=== PATIENT | male | born 1990 | race African-American/Black ===

== ENCOUNTER 2017-09-28 08:42 | Emergency (ER) | payer SELFPAY ==
[2017-09-28 08:51] VITALS: BMI 24.4
--- NOTE | 2017-09-28 08:56 | PDOC ---
History of Present Illness - General Chief Complaint: Respiratory Stated Complaint: ASTHMA ATTACK, COLD LIKE SYMPTOMS Time Seen by Provider: 09/28/17 08:56 - History of Present Illness Initial Comments: 27 year old male with remote history of asthma presenting with fevers, chills, nausea, NBNB vomiting, myalgias, and NB diarrhea since Friday. Patient states his had some similar symptoms last week but she improved. He came in today after a severe 10/10 occipital headache with slight photophobia, no sonophobia, and no visual acuity change that prevented him from getting continuous sleep. He hasn't attempted to measure a fever at home, hasn't taken Tylenol, and hasn't taken any NSAIDs. He tried a dose of tamiflu and some sleep aid but they didn't help. He is complaining of some nonspecific left hand finger tip paresthesias but no specific chest pain, SOB, or diaphoresis. Denies visual symptoms besides those noted, urinary symptoms, blood from any orifice, ataxia, or focal neurological deficit. 09/28/17 09:56 Past History - Past Medical History Allergies/Adverse Reactions: Allergies Allergy/AdvReac Type Severity Reaction Status Date / Time hydrocodone [Hydrocodone] Allergy Mild Hives Verified 09/28/17 08:50 Home Medications: Ambulatory Orders Ondansetron [Zofran *Odt*] 8 mg SL BID PRN #10 od.tablet 09/28/17 Asthma: Yes COPD: No - Suicide/Smoking/Psychosocial Hx Smoking Status: Yes (Occasionally marijuana) Smoking History: Current some day smoker Number of Cigarettes Smoked Daily: 1 Information on smoking cessation initiated: No Substance Use Type: Marijuana Review of Systems - Review of Systems Constitutional: Yes: Chills, Fever, Weakness. No: Diaphoresis HEENTM: Yes: Tearing. No: Blurred Vision, Recent change in vision, Throat Pain , Throat Swelling, Mouth Pain Respiratory: Yes: Cough. No: Shortness of Breath, Wheezing, Productive cough, Hemoptysis Cardiac (ROS): Yes: Lightheadedness. No: Chest Pain, Chest Tightness ABD/GI: No: Nausea, Vomiting : No: Dysuria, Discharge, Hematuria, Incontinence Musculoskeletal: Yes: Back Pain, Muscle Pain. No: Joint Swelling, Joint Stiffness Integumentary: No: Bruising, Erythema, Lesions Neurological: Yes: Headache, Paresthesia. No: Numbness Psychiatric: No: Anxiety, Depression Hematologic/Lymphatic: No: Anemia, Blood Clots, Easy Bleeding *Physical Exam - Vital Signs Last Vital Signs Temp Pulse Resp BP Pulse Ox 101 F H 92 H 18 140/90 97 09/28/17 08:46 09/28/17 08:46 09/28/17 08:46 09/28/17 08:46 09/28/17 08:46 - Physical Exam General Appearance: Yes: Nourished, Appropriately Dressed. No: Apparent Distress HEENT: positive: EOMI, ZEE, Photophobia, Nasal Congestion, Other (lacrimation) . negative: Normal ENT Inspection Neck: positive: Trachea midline, Normal Thyroid, Supple. negative: Tender, Rigid Respiratory/Chest: positive: Lungs Clear, Normal Breath Sounds. negative: Chest Tender, Respiratory Distress, Accessory Muscle Use Cardiovascular: positive: Regular Rhythm, Regular Rate Gastrointestinal/Abdominal: positive: Normal Bowel Sounds, Flat, Soft. negative : Tender Musculoskeletal: positive: Normal Inspection. negative: CVA Tenderness, Decreased Range of Motion Extremity: positive: Normal Capillary Refill, Normal Inspection, Normal Range of Motion. negative: Tender Integumentary: positive: Normal Color, Dry, Warm Neurologic: positive: land use planner II-XII NML intact, Fully Oriented, Alert, Normal Mood/ Affect, Normal Response, Motor Strength / ED Treatment Course - LABORATORY CBC & Chemistry Diagram: 09/28/17 10:00 09/28/17 10:00 Medical Decision Making - Medical Decision Making 27 year old male with myalgias, fevers, chills, nausea, vomiting, diarrhea, and headachs for the past 4 days who is presenting because he has not improved but also has not taken tylenol or any NSAIDs. His EKG demonstrates NSR, labs are WNL, and his symptoms are much improved. EKG demonstrating NSR. Will give on dose toradol 15 IV and DC patient with return precautions and Tylenol/ NSAID iuse instructions as this is likely a viral gastroenteritis vs. flu. However, he is well outside the window for tamiflu administration. 09/28/17 11:02 *DC/Admit/Observation/Transfer Diagnosis at time of Disposition: Viral illness - Discharge Dispostion Disposition: HOME Condition at time of disposition: Improved Admit: No - Prescriptions Prescriptions: Ondansetron [Zofran *Odt*] 8 mg SL BID PRN #10 od.tablet PRN Reason: Nausea And/Or Vomiting - Referrals Referrals: [facility] [Provider Group] - Patient Instructions Printed Discharge Instructions: DI for Viral Gastroenteritis -- Adult Additional Instructions: You likely have a viral illness of your throat and stomach. This could be the flu as well. Please take the zofran for nausea and please use Tylenol at home for the fever. For the muscle aches and headache, you can use Advil, aleve, generic ibuprofen, or generic naproxen. Please rest for the next few days. Please follow up with the primary care doctor listed if you do not have someone of your own to answer any questions or give you routine healthcare. Please return to the ED if the fever remains despite Tylenol use or the vomiting is not helped by the zofran. - Post Discharge Activity Forms/Work/School Notes: Back to Work
[2017-09-28] MEDS ORDERED: ACETAMINOPHEN 500 MG TABLET (FP) PO ONE (08:57)
[2017-09-28] MEDS ORDERED: ACETAMINOPHEN 500 MG TABLET (FP) ONE (09:06)
[2017-09-28] MEDS ORDERED: ONDANSETRON *ODT* 4 MG TABLET SL ONE (09:31)
[2017-09-28] MEDS ORDERED: SODIUM CHLORIDE 0.9% 500 ML INFUS.BAG IV ONE (09:31)
[2017-09-28] MEDS ORDERED: ONDANSETRON 4 MG/2 ML VIAL ONE (09:39)
[2017-09-28 10:05] LABS: BASO % 1.4 % (0-2.0); HEMATOCRIT 47.2 % (35.4-49); HEMOGLOBIN 15.7 GM/dL (11.7-16.9); LYMPH % 17.8 % (8-40); MCH 30.8 pg (25.7-33.7); MCHC 33.2 g/dl (32.0-35.9); MEAN CELL VOLUME 92.6 fl (80-96); MEAN PLT VOLUME 8.9 fl (7.5-11.1); MONO % 13.2 % (3.8-10.2); NEUT % 67.6 % (42.8-82.8); PLATELET COUNT 138 K/MM3 (134-434); RBC 5.09 M/mm3 (4.00-5.60); RDW 13.8 % (11.9-15.9); WHITE BLOOD COUNT 5.4 K/mm3 (4.0-10.0)
--- NOTE | 2017-09-28 10:22 | PDOC ---
Attending Attestation - Resident Resident Name: Gil Hutchins - ED Attending Attestation I have performed the following: I have examined & evaluated the patient, The case was reviewed & discussed with the resident, I agree w/resident's findings & plan, Exceptions are as noted - HPI HPI: 09/28/17 10:19 "The patient is a 27 year old male with a significant past medical history of remote asthma who presents to the ED with bodyaches, N+V+D since (4 days). The patient reports 6 episodes of non-bilious, non-bloody vomiting in total associated with multiple episode of watery brown diarrhea. He describes his body aches as diffuse. He also notes a gradual onset posterior headache in with associated mild photophobia. Denies thunderclap, denies neck stiffness. The patient also endorses subjective fever (not measured at home). He states that he has not taken anything to treat symptoms other than tamilflu (obtained from a relative) and a sleep aid with minimal relief of symptoms. Social history: smokes marijuana 2 times weekly - Physicial Exam PE: 09/28/17 10:21 "GENERAL: Awake, alert, and fully oriented, in no acute distress HEAD: No signs of trauma EYES: PERRLA, EOMI, sclera anicteric, conjunctiva clear ENT: Auricles normal inspection, hearing grossly normal, nares patent, oropharynx clear without exudates. Moist mucosa NECK: Nontender, no stepoffs, Normal ROM, supple, no lymphadenopathy, JVD, or masses LUNGS: Breath sounds equal, clear to auscultation bilaterally. No wheezes, and no crackles HEART: Regular rate and rhythm, normal S1 and S2, no murmurs, rubs or gallops ABDOMEN: Soft, nontender, normoactive bowel sounds. No guarding, no rebound. No masses EXTREMITIES: Normal range of motion, no edema. No clubbing or cyanosis. No cords, erythema, or tenderness NEUROLOGICAL: Cranial nerves II through XII intact. 5/5 strength and sensation in all extremities, Normal speech, normal gait SKIN: Warm, Dry, normal turgor, no rashes or lesions noted. " - Medical Decision Making 09/28/17 10:21 27 M with flu-like symptoms x 4 days. Likely viral syndrome. Pt with no evidence of meningismus on exam, negative kernig/brudzinsky. No abdominal tenderness to suggest acute abdominal pathology. - Labs - IVF, tylenol, zofran 09/28/17 12:48 Labs wnl. Pt is well appearing, with normal vitals. Clinically stable for DC at this time. I discussed the physical exam findings, ancillary test results and final diagnoses with the patient. I answered all of the patient's questions. The patient was satisfied with the care received and felt comfortable with the discharge plan and treatment plan. The patient agrees to follow up with the primary care physician within 24-72 hours.
[2017-09-28 10:31] LABS: ALBUMIN 4.3 g/dl (3.4-5.0); ALK PHOS 47 U/L (45-117); ANION GAP 11 (8-16); BILIRUBIN,TOTAL 0.4 mg/dL (0.2-1.0); BLOOD UREA NITROGEN 20 mg/dL (7-18); CALCIUM 8.9 mg/dL (8.5-10.1); CHLORIDE 102 mmol/L (98-107); CO2 24 mmol/L (21-32); CREATININE 0.8 mg/dL (0.7-1.3); GLUCOSE,RANDOM 78 mg/dL (74-106); POTASSIUM 3.9 mmol/L (3.5-5.1); SGOT/AST 37 U/L (15-37); SGPT/ALT 45 U/L (12-78); SODIUM 137 mmol/L (136-145); TOT PROT 7.8 g/dl (6.4-8.2)
[2017-09-28] MEDS ORDERED: ONDANSETRON 4 MG/2 ML VIAL IVPUSH ONE (10:33)
[2017-09-28] MEDS ORDERED: KETOROLAC TROMETHAMINE 15 MG/ML VIAL IVPUSH ONE (11:16)
[2017-09-28] MEDS ORDERED: KETOROLAC TROMETHAMINE 15 MG/ML VIAL ONE (11:25)
[2017-09-28 11:45] VITALS: BP 122/81; PULSE 81; TEMP 99
--- NOTE | 2017-09-28 16:50 | EKG ---
Test Reason : Blood Pressure : / mmHG Vent. Rate : 059 BPM Atrial Rate : 059 BPM P-R Int : 162 ms QRS Dur : 086 ms QT Int : 392 ms P-R-T Axes : 058 083 037 degrees QTc Int : 388 ms SINUS BRADYCARDIA POSSIBLE LEFT ATRIAL ENLARGEMENT BORDERLINE ECG NO PREVIOUS ECGS AVAILABLE Confirmed by MICHELLE HUSAIN, AFSHAN ([id number]) on 09/28/2017 4:50:17 PM Referred By: Confirmed By:AFSHAN MARTINEZ MD
== END 2017-09-28 11:46 | disposition home or self-care (01) ==
LOC: JER 08:42
PROC: 3E0333Z Introduction of Anti-inflammatory into Peripheral Vein, Percutaneous Approach (ICD-10-PCS; principal; 2017-09-28)
DX: A08.4 Viral intestinal infection, unspecified (principal); B97.89 Other viral agents as the cause of diseases classified elsewhere
CPT/HCPCS: 36415; 80053; 85025; 93005; 93010; 99284-25